=== PATIENT | female | born 1960 | race American Indian/Alaskan Native ===

== ENCOUNTER 2022-02-10 16:06 | Inpatient (IN) | payer MEDICARE ==
--- NOTE | 2022-02-11 08:50 | History and Physical Report ---
GP History & Physical - History of Present Illness Date of admission: 02/11/22 Date of Examination: 02/11/22 Reason for Admission: Danger to self, Danger to others, Failure of Outpatient Treatment History of Present Illness: The patient is a 61 year old female with history of schizophrenia who was admitted for worsening hallucinations and paranoia. In my encounter with the patient, she is calm, and alert. The patient was seen resting in her room, she is selectively mute and not engaging. PAST PSYCHIATRIC HISTORY PAST MEDICAL HISTORY: unknown Family Psychiatric History: unknown SOCIAL HISTORY REVIEW OF SYSTEMS MENTAL STATUS EXAMINATION Assessment and Plan (1) Schizophrenia Treatment Plan Patient admitted for inpatient psychiatric evaluation, medication adjustment and close monitoring The patient's behavior, mood, sleep and appetite will be closely monitored. Patient enrolled in individual and group therapeutic sessions and encouraged to attend. Patient provided with a safe and structured environment. Patient's physical health needs will be addressed by the Hospitalist. Hospitalist Consulted Labs including CBC, CMP, Lipid profile and Hemoglobin A1C levels ordered for baseline reference Social Assessment will be completed and the Geometry Professor will work with patient and family to ensure a suitable and safe disposition Medication adjustment will be made as clinically indicated Continue home meds Usual Wellness Latter Day/Preservation: - Start Trazodone 50 mg po QHS & 50 mg po QHS PRN between 10 PM & 2 AM for insomnia - Start Melatonin 5 mg po QHS to promote circadian rhythm The patient agreed on the treatment plan, understood the risk, benefit, alternative treatment, potential consequence of no treatment, and gave informed consent. Estimated days: 7 Post hospital care: primary care provider, psychiatric provider Case staffed with Dr. Jarvis Medications and Allergies Patient Problems: Current Active Problems Medications and Allergies Medications and Allergies Allergies Allergy/AdvReac Type Severity Reaction Status Date / Time Penicillins Allergy Unknown Verified 02/11/22 03:57 Home Medications Medication Instructions Recorded Confirmed Last Taken Type ARIPiprazole [Aripiprazole] 15 mg PO DAILY 02/11/22 02/11/22 Unknown History Benztropine [Cogentin] 1 mg PO BID 02/11/22 02/11/22 Unknown History Omeprazole 20 mg PO DAILY 02/11/22 02/11/22 Unknown History Sertraline [Zoloft] 25 mg PO QDAY 02/11/22 02/11/22 Unknown History atenoloL [Tenormin] 25 mg PO DAILY 02/11/22 02/11/22 Unknown History clonazePAM [Klonopin] 1 mg PO BID 02/11/22 02/11/22 Unknown History donepeziL [Aricept] 5 mg PO HS 02/11/22 02/11/22 Unknown History traZODone [Desyrel] 50 mg PO QHS 02/11/22 02/11/22 Unknown History Results - Results Labs/Vitals: Last Vital Signs Temp 98.7 F 02/11/22 03:58 Pulse 69 02/11/22 03:58 Resp 16 02/11/22 03:58 BP 131/85 02/11/22 03:58 Pulse Ox 95 02/11/22 03:58 Physical Examination - Constitutional Vitals: Vital Signs Temp Pulse Resp BP Pulse Ox 98.7 F 69 16 131/85 95 02/11/22 03:58 02/11/22 03:58 02/11/22 03:58 02/11/22 03:58 02/11/22 03:58 Temperature -Last 24 Hours Temperature 98.7 F Mental Status Exam - Vital signs Last Vital Signs Temp 98.7 F 02/11/22 03:58 Pulse 69 02/11/22 03:58 Resp 16 02/11/22 03:58 BP 131/85 02/11/22 03:58 Pulse Ox 95 02/11/22 03:58 Physician Certification - Certification Statement Physician Certification Statement: This is an acknowledgement statement that KAYLI CUETO is a 61 year old F who requires inpatient psychiatric admission for treatment which could reasonably be expected to improve the patient's condition for Estimated period of time patient will need to remain in the hospital: [ ] Plan for post-hospital care: [ ]
[2022-02-11] MEDS ORDERED: OMEPRAZOLE 20 MG PO SCH (10:00)
[2022-02-11] MEDS ORDERED: NON-FORMULARY EACH (Clonazepam [Klonopin] 1 MG Tablet) PO SCH (10:00)
[2022-02-11] MEDS: clonazePAM 0.5 MG TAB PO SCH ×2 (10:25→21:22)
[2022-02-11] MEDS: ARIPiprazole 15 MG TAB PO SCH (10:25)
[2022-02-11] MEDS: BENZTROPINE 1 MG TAB PO SCH ×2 (10:25→21:22)
[2022-02-11] MEDS: SERTRALINE 25 MG TAB PO SCH (10:25)
[2022-02-11] MEDS: PANTOPRAZOLE 20 MG TAB PO SCH (10:25)
[2022-02-11] MEDS: atenoloL 25 MG TAB PO SCH (13:02)
--- NOTE | 2022-02-11 14:08 | Consultation ---
History of Present Illness - Reason for Consult Consult date: 02/11/22 Medical management - History of Present Illness The patient is a 61-year-old female past medical history of schizophrenia and multiple inpatient psychiatric admissions who is being admitted due to concerns for her being a danger to herself and others. Medicine was consulted for medical management of nonpsychiatric diagnoses. Past History Past Medical History: GERD, hypertension, other (schizophrenia) Past Surgical History: No surgical history Social history: no significant social history Family history: hypertension Medications and Allergies Allergies Allergy/AdvReac Type Severity Reaction Status Date / Time Penicillins Allergy Unknown Verified 02/11/22 03:57 Home Medications Medication Instructions Recorded Confirmed Last Taken Type ARIPiprazole [Aripiprazole] 15 mg PO DAILY 02/11/22 02/11/22 Unknown History Benztropine [Cogentin] 1 mg PO BID 02/11/22 02/11/22 Unknown History Omeprazole 20 mg PO DAILY 02/11/22 02/11/22 Unknown History Sertraline [Zoloft] 25 mg PO QDAY 02/11/22 02/11/22 Unknown History atenoloL [Tenormin] 25 mg PO DAILY 02/11/22 02/11/22 Unknown History clonazePAM [Klonopin] 1 mg PO BID 02/11/22 02/11/22 Unknown History donepeziL [Aricept] 5 mg PO HS 02/11/22 02/11/22 Unknown History traZODone [Desyrel] 50 mg PO QHS 02/11/22 02/11/22 Unknown History Active Meds: Active Medications Aripiprazole (Aripiprazole 15 Mg Tab) 15 mg PO DAILY [facility] Last Admin: 02/11/22 10:25 Dose: 15 mg Atenolol (Atenolol 25 Mg Tab) 25 mg PO DAILY [facility] Last Admin: 02/11/22 13:02 Dose: 25 mg Benztropine Mesylate (Benztropine 1 Mg Tab) 1 mg PO BID [facility] Last Admin: 02/11/22 10:25 Dose: 1 mg Clonazepam (Clonazepam 0.5 Mg Tab) 1 mg PO BID [facility] Last Admin: 02/11/22 10:25 Dose: 1 mg Donepezil HCl (Donepezil 5 Mg Tab) 5 mg PO [facility] Pantoprazole Sodium (Pantoprazole 20 Mg Tab) 20 mg PO QDAC [facility] Last Admin: 02/11/22 10:25 Dose: 20 mg Sertraline HCl (Sertraline 25 Mg Tab) 25 mg PO QDAY [facility] Last Admin: 02/11/22 10:25 Dose: 25 mg Trazodone HCl (Trazodone 50 Mg Tab) 50 mg PO QHS [facility] Review of Systems ROS unobtainable: due to mental status Exam - Constitutional Vitals: Temp Pulse Resp BP Pulse Ox 98.7 F 75 16 115/73 95 02/11/22 03:58 02/11/22 13:02 02/11/22 03:58 02/11/22 13:02 02/11/22 03:58 General appearance: Present: well-nourished - EENT Eyes: Present: PERRL, EOM intact ENT: hearing intact, clear oral mucosa - Neck Neck: Present: supple, normal ROM - Respiratory Respiratory effort: normal Respiratory: bilateral: CTA - Cardiovascular Rhythm: regular Heart Sounds: Present: S1 & S2 - Extremities Extremities: no ischemia, pulses intact, pulses symmetrical, No edema, normal temperature, normal color Peripheral Pulses: within normal limits - Abdominal General gastrointestinal: Present: soft, non-tender, non-distended, normal bowel sounds Female genitourinary: Present: deferred - Rectal Rectal Exam: deferred - Integumentary Integumentary: Present: clear, warm - Psychiatric Psychiatric: agitated, depressed - Neurologic Neurologic: CNII-XII intact, moves all extremities - Allied Health Allied health notes reviewed: nursing Assessment and Plan The patient is a 61-year-old female past medical history of schizophrenia and multiple inpatient psychiatric admissions who is being admitted due to concerns for her being a danger to herself and others. Medicine was consulted for medical management of nonpsychiatric diagnoses. #Schizophrenia Management per primary #Insomnia Management per primary #GERD Continue home omeprazole 20 mg daily #Hypertension - home medications: Atenolol 25 mg daily - current medications: Atenolol 25 mg daily - SBP goal <160 and DBP goal <90 while inpatient - continue to monitor #Healthcare maintenance Pending the following labs: CMP, CBC, lipid profile, hemoglobin A1c, and TSH #Advanced care planning -Disease education conducted, care plan discussed, diagnoses discussed, prognosis discussed, and patient acknowledges understanding with care plan -Time: +30 min Thank you for this interesting consult. We will continue to follow.
[2022-02-11 15:35] LABS: Basophils # (Auto) 0.1 K/mm3 (0.0-0.1); Basophils % (Auto) 0.7 % (0.0-1.8); Eosinophils # (Auto) 0.1 K/mm3 (0.0-0.4); Eosinophils % (Auto) 0.6 % (0.0-4.3); Hematocrit 40.6 % (30.3-42.9); Hemoglobin 13.1 gm/dl (10.1-14.3); Mean Corpuscular HGB Conc 32 % (30-34); Mean Corpuscular Volume 95 fl (79-97); Monocytes # (Auto) 0.9 K/mm3 (0.0-0.8); Monocytes % (Auto) 9.5 % (0.0-7.3); Platelet Count 239 K/mm3 (140-440); Red Blood Count 4.27 M/mm3 (3.65-5.03)
[2022-02-11 15:55] LABS: Alanine Aminotransferase 21 units/L (7-56); Albumin 4.3 g/dL (3.9-5); BUN/Creatinine Ratio 16; Blood Urea Nitrogen 13 mg/dL (7-17); Calcium 9.6 mg/dL (8.4-10.2); Hemolysis Index 1; LDL Cholesterol,Direct 76 mg/dL (50-130)
[2022-02-11 16:22] LABS: Chol/HDL Ratio 2.01 %; HDL Cholesterol 82 mg/dL (40-59)
[2022-02-11] MEDS: traZODone 50 MG TAB PO SCH (21:22)
[2022-02-11] MEDS: DONEPEZIL 5 MG TAB PO SCH (21:22)
[2022-02-12] MEDS: ARIPiprazole 15 MG TAB PO SCH (09:45)
[2022-02-12] MEDS: SERTRALINE 25 MG TAB PO SCH (09:45)
--- NOTE | 2022-02-12 09:45 | Progress Note ---
Subjective Date of service: 02/12/22 Subjective Comment: 02/12/22: The patient was seen this morning. The patient presents with depressive mood. She states sleep and appetite as ok. She reports hearing voices " voices telling me what to do, telling me to turn the lights off and to take a shower." The patient denies any current suicidal/homicidal ideation. REVIEW OF SYSTEMS Constitutional: Negative for weight loss ENT: Negative for stridor Respiratory: Negative for cough or hemoptysis All other systems reviewed and are negative MENTAL STATUS EXAMINATION General Appearance and Behavior: Age appropriate, good hygiene, wearing appropriate clothes, good eye contact, calm, cooperative Cooperation: Participating/engaged, but Guarded Psychomotor Behavior: Psychomotor normal Mood: Depressed Affect and affective range: congruent with stated mood Thought Process: Goal directed Thought Content:Hallucinations Speech: normal tone and pace Suicidal Ideation: Denies Homicidal Ideation: Denies Hallucinations: Auditory/visual Delusions: None Impulse Control: Limited Insight and Judgment: limited insight and judgment Memory: Poor Attention: Divided Orientation: Alert, oriented Assessment and Plan: (1) Schizophrenia Treatment Plan Patient admitted for inpatient psychiatric evaluation, medication adjustment and close monitoring The patient's behavior, mood, sleep and appetite will be closely monitored. Patient enrolled in individual and group therapeutic sessions and encouraged to attend. Patient provided with a safe and structured environment. Patient's physical health needs will be addressed by the Hospitalist. Donell vail Consulted Labs including CBC, CMP, Lipid profile and Hemoglobin A1C levels ordered for baseline reference Social Assessment will be completed and the School Bus Driver will work with patient and family to ensure a suitable and safe disposition Medication adjustment will be made as clinically indicated Continue home meds Usual Wellness Mandaen/Preservation: - Start Trazodone 50 mg po QHS & 50 mg po QHS PRN between 10 PM & 2 AM for insomnia - Start Melatonin 5 mg po QHS to promote circadian rhythm The patient agreed on the treatment plan, understood the risk, benefit, alternative treatment, potential consequence of no treatment, and gave informed consent. Estimated days: 6 Post hospital care: primary care provider, psychiatric provider Case staffed with Dr. Jarvis Medications and Allergies Patient Problems: Current Active Problems Medications and Allergies Allergies Allergy/AdvReac Type Severity Reaction Status Date / Time Penicillins Allergy Unknown Verified 02/11/22 03:57 Home Medications Medication Instructions Recorded Confirmed Last Taken Type ARIPiprazole [Aripiprazole] 15 mg PO DAILY 02/11/22 02/11/22 Unknown History Benztropine [Cogentin] 1 mg PO BID 02/11/22 02/11/22 Unknown History Omeprazole 20 mg PO DAILY 02/11/22 02/11/22 Unknown History Sertraline [Zoloft] 25 mg PO QDAY 02/11/22 02/11/22 Unknown History atenoloL [Tenormin] 25 mg PO DAILY 02/11/22 02/11/22 Unknown History clonazePAM [Klonopin] 1 mg PO BID 02/11/22 02/11/22 Unknown History donepeziL [Aricept] 5 mg PO HS 02/11/22 02/11/22 Unknown History traZODone [Desyrel] 50 mg PO QHS 02/11/22 02/11/22 Unknown History Active Meds: Active Medications Aripiprazole (Aripiprazole 15 Mg Tab) 15 mg PO DAILY [facility] Last Admin: 02/11/22 10:25 Dose: 15 mg Atenolol (Atenolol 25 Mg Tab) 25 mg PO DAILY [facility] Last Admin: 02/11/22 13:02 Dose: 25 mg Benztropine Mesylate (Benztropine 1 Mg Tab) 1 mg PO BID [facility] Last Admin: 02/11/22 21:22 Dose: 1 mg Clonazepam (Clonazepam 0.5 Mg Tab) 1 mg PO BID [facility] Last Admin: 02/11/22 21:22 Dose: 1 mg Donepezil HCl (Donepezil 5 Mg Tab) 5 mg PO [facility] Last Admin: 02/11/22 21:22 Dose: 5 mg Pantoprazole Sodium (Pantoprazole 20 Mg Tab) 20 mg PO QDAC [facility] Last Admin: 02/11/22 10:25 Dose: 20 mg Sertraline HCl (Sertraline 25 Mg Tab) 25 mg PO QDAY [facility] Last Admin: 02/11/22 10:25 Dose: 25 mg Trazodone HCl (Trazodone 50 Mg Tab) 50 mg PO QHS [facility] Last Admin: 02/11/22 21:22 Dose: 50 mg Results - Results Labs/Vitals: Laboratory Last Values WBC 9.3 K/mm3 (4.5-11.0) 02/11/22 15:10 RBC 4.27 M/mm3 (3.65-5.03) 02/11/22 15:10 Hgb 13.1 gm/dl (10.1-14.3) 02/11/22 15:10 Hct 40.6 % (30.3-42.9) 02/11/22 15:10 MCV 95 fl (79-97) 02/11/22 15:10 MCH 31 pg (28-32) 02/11/22 15:10 MCHC 32 % (30-34) 02/11/22 15:10 RDW 14.0 % (13.2-15.2) 02/11/22 15:10 Plt Count 239 K/mm3 (140-440) 02/11/22 15:10 Lymph % (Auto) 22.0 % (13.4-35.0) 02/11/22 15:10 [place]fe % (Auto) 9.5 % (0.0-7.3) H 02/11/22 15:10 Eos % (Auto) 0.6 % (0.0-4.3) 02/11/22 15:10 Baso % (Auto) 0.7 % (0.0-1.8) 02/11/22 15:10 Lymph # (Auto) 2.0 K/mm3 (1.2-5.4) 02/11/22 15:10 [place] # (Auto) 0.9 K/mm3 (0.0-0.8) H 02/11/22 15:10 Eos # (Auto) 0.1 K/mm3 (0.0-0.4) 02/11/22 15:10 Baso # (Auto) 0.1 K/mm3 (0.0-0.1) 02/11/22 15:10 Seg Neutrophils % 67.2 % (40.0-70.0) 02/11/22 15:10 Seg Neutrophils # 6.2 K/mm3 (1.8-7.7) 02/11/22 15:10 Sodium 146 mmol/L (137-145) H 02/11/22 15:10 Potassium 3.7 mmol/L (3.6-5.0) 02/11/22 15:10 Chloride 107.9 mmol/L (98-107) H 02/11/22 15:10 Carbon Dioxide 25 mmol/L (22-30) 02/11/22 15:10 Anion Gap 17 mmol/L 02/11/22 15:10 BUN 13 mg/dL (7-17) 02/11/22 15:10 Creatinine 0.8 mg/dL (0.6-1.2) 02/11/22 15:10 Estimated GFR > 60 ml/min 02/11/22 15:10 BUN/Creatinine Ratio 16 % 02/11/22 15:10 Glucose 117 mg/dL (65-100) H 02/11/22 15:10 Hemoglobin A1c 5.8 % (4-6) 02/11/22 15:10 Calcium 9.6 mg/dL (8.4-10.2) 02/11/22 15:10 Total Bilirubin 0.50 mg/dL (0.1-1.2) 02/11/22 15:10 AST 24 units/L (5-40) 02/11/22 15:10 ALT 21 units/L (7-56) 02/11/22 15:10 Alkaline Phosphatase 100 units/L (35-129) 02/11/22 15:10 Total Protein 7.4 g/dL (6.3-8.2) 02/11/22 15:10 Albumin 4.3 g/dL (3.9-5) 02/11/22 15:10 Albumin/Globulin Ratio 1.4 % 02/11/22 15:10 Triglycerides 43 mg/dL (2-149) 02/11/22 15:10 Cholesterol 165 mg/dL (50-199) 02/11/22 15:10 LDL Cholesterol Direct 76 mg/dL (50-130) 02/11/22 15:10 HDL Cholesterol 82 mg/dL (40-59) H 02/11/22 15:10 Cholesterol/HDL Ratio 2.01 % 02/11/22 15:10 TSH 0.608 mlU/mL (0.270-4.200) 02/11/22 15:10 Last Vital Signs Temp 98.5 F 02/11/22 19:40 Pulse 60 02/11/22 19:40 Resp 17 02/11/22 19:40 BP 119/69 02/11/22 19:40 Pulse Ox 95 02/11/22 19:40
[2022-02-12] MEDS: clonazePAM 0.5 MG TAB PO SCH ×2 (09:46→21:54)
[2022-02-12] MEDS: BENZTROPINE 1 MG TAB PO SCH ×2 (09:46→21:53)
[2022-02-12] MEDS: PANTOPRAZOLE 20 MG TAB PO SCH (09:46)
[2022-02-12] MEDS: atenoloL 25 MG TAB PO SCH (09:47)
[2022-02-12] MEDS: traZODone 50 MG TAB PO SCH (22:01)
[2022-02-12] MEDS: DONEPEZIL 5 MG TAB PO SCH (22:02)
--- NOTE | 2022-02-13 09:06 | Progress Note ---
Subjective Date of service: 02/13/22 Subjective Comment: 02/13/22: The patient was seen this morning. She states she is doing well. She continues to endorse depression rating as 4/10. She presents with flat affect. The patient denies any current suicidal/homicidal ideation. She states hallucinations is a " little better." 02/12/22: The patient was seen this morning. The patient presents with depressive mood. She states sleep and appetite as ok. She reports hearing voices " voices telling me what to do, telling me to turn the lights off and to take a shower." The patient denies any current suicidal/homicidal ideation. REVIEW OF SYSTEMS Constitutional: Negative for weight loss ENT: Negative for stridor Respiratory: Negative for cough or hemoptysis All other systems reviewed and are negative MENTAL STATUS EXAMINATION General Appearance and Behavior: Age appropriate, good hygiene, wearing appropriate clothes, good eye contact, calm, cooperative Cooperation: Participating/engaged, but Guarded Psychomotor Behavior: Psychomotor normal Mood: Depressed Affect and affective range: congruent with stated mood Thought Process: Goal directed Thought Content:Hallucinations Speech: normal tone and pace Suicidal Ideation: Denies Homicidal Ideation: Denies Hallucinations: Auditory/visual Delusions: None Impulse Control: Limited Insight and Judgment: limited insight and judgment Memory: Poor Attention: Divided Orientation: Alert, oriented Assessment and Plan: (1) Schizophrenia Treatment Plan Patient admitted for inpatient psychiatric evaluation, medication adjustment and close monitoring The patient's behavior, mood, sleep and appetite will be closely monitored. Patient enrolled in individual and group therapeutic sessions and encouraged to attend. Patient provided with a safe and structured environment. Patient's physical health needs will be addressed by the Hospitalist. Hospitalist Consulted Labs including CBC, CMP, Lipid profile and Hemoglobin A1C levels ordered for baseline reference Social Assessment will be completed and the Medication Aid will work with patient and family to ensure a suitable and safe disposition Medication adjustment will be made as clinically indicated Continue home meds Usual Wellness [place]ats[place]/Preservation: - Start Trazodone 50 mg po QHS & 50 mg po QHS PRN between 10 PM & 2 AM for insomnia - Start Melatonin 5 mg po QHS to promote circadian rhythm The patient agreed on the treatment plan, understood the risk, benefit, alternative treatment, potential consequence of no treatment, and gave informed consent. Estimated days: 5 Post hospital care: primary care provider, psychiatric provider Case staffed with Dr. Matheus Medications and Allergies Patient Problems: Current Active Problems Medications and Allergies Allergies Allergy/AdvReac Type Severity Reaction Status Date / Time Penicillins Allergy Unknown Verified 02/11/22 03:57 Home Medications Medication Instructions Recorded Confirmed Last Taken Type ARIPiprazole [Aripiprazole] 15 mg PO DAILY 02/11/22 02/11/22 Unknown History Benztropine [Cogentin] 1 mg PO BID 02/11/22 02/11/22 Unknown History Omeprazole 20 mg PO DAILY 02/11/22 02/11/22 Unknown History Sertraline [Zoloft] 25 mg PO QDAY 02/11/22 02/11/22 Unknown History atenoloL [Tenormin] 25 mg PO DAILY 02/11/22 02/11/22 Unknown History clonazePAM [Klonopin] 1 mg PO BID 02/11/22 02/11/22 Unknown History donepeziL [Aricept] 5 mg PO HS 02/11/22 02/11/22 Unknown History traZODone [Desyrel] 50 mg PO QHS 02/11/22 02/11/22 Unknown History Active Meds: Active Medications Aripiprazole (Aripiprazole 15 Mg Tab) 15 mg PO DAILY [facility] Last Admin: 02/12/22 09:45 Dose: 15 mg Atenolol (Atenolol 25 Mg Tab) 25 mg PO DAILY [facility] Last Admin: 02/12/22 09:47 Dose: Not Given Benztropine Mesylate (Benztropine 1 Mg Tab) 1 mg PO BID [facility] Last Admin: 02/12/22 21:53 Dose: 1 mg Clonazepam (Clonazepam 0.5 Mg Tab) 1 mg PO BID [facility] Last Admin: 02/12/22 21:54 Dose: 1 mg Donepezil HCl (Donepezil 5 Mg Tab) 5 mg PO [facility] Last Admin: 02/12/22 22:02 Dose: 5 mg Olanzapine (Olanzapine 5 Mg Tab) 5 mg PO BID [facility] Last Admin: 02/12/22 21:53 Dose: 5 mg Pantoprazole Sodium (Pantoprazole 20 Mg Tab) 20 mg PO QDAC [facility] Last Admin: 02/12/22 09:46 Dose: 20 mg Sertraline HCl (Sertraline 25 Mg Tab) 25 mg PO QDAY [facility] Last Admin: 03/24/22 09:45 Dose: 25 mg Trazodone HCl (Trazodone 50 Mg Tab) 50 mg PO QHS [facility] Last Admin: 02/12/22 22:01 Dose: 50 mg Results - Results Labs/Vitals: Laboratory Last Values WBC 9.3 K/mm3 (4.5-11.0) 02/11/22 15:10 RBC 4.27 M/mm3 (3.65-5.03) 02/11/22 15:10 Hgb 13.1 gm/dl (10.1-14.3) 02/11/22 15:10 Hct 40.6 % (30.3-42.9) 02/11/22 15:10 MCV 95 fl (79-97) 02/11/22 15:10 MCH 31 pg (28-32) 02/11/22 15:10 MCHC 32 % (30-34) 02/11/22 15:10 RDW 14.0 % (13.2-15.2) 02/11/22 15:10 Plt Count 239 K/mm3 (140-440) 02/11/22 15:10 Lymph % (Auto) 22.0 % (13.4-35.0) 02/11/22 15:10 Grand % (Auto) 9.5 % (0.0-7.3) H 02/11/22 15:10 Eos % (Auto) 0.6 % (0.0-4.3) 02/11/22 15:10 Baso % (Auto) 0.7 % (0.0-1.8) 02/11/22 15:10 Lymph # (Auto) 2.0 K/mm3 (1.2-5.4) 02/11/22 15:10 Grand # (Auto) 0.9 K/mm3 (0.0-0.8) H 02/11/22 15:10 Eos # (Auto) 0.1 K/mm3 (0.0-0.4) 02/11/22 15:10 Baso # (Auto) 0.1 K/mm3 (0.0-0.1) 02/11/22 15:10 Seg Neutrophils % 67.2 % (40.0-70.0) 02/11/22 15:10 Seg Neutrophils # 6.2 K/mm3 (1.8-7.7) 02/11/22 15:10 Sodium 146 mmol/L (137-145) H 02/11/22 15:10 Potassium 3.7 mmol/L (3.6-5.0) 02/11/22 15:10 Chloride 107.9 mmol/L (98-107) H 02/11/22 15:10 Carbon Dioxide 25 mmol/L (22-30) 02/11/22 15:10 Anion Gap 17 mmol/L 02/11/22 15:10 BUN 13 mg/dL (7-17) 02/11/22 15:10 Creatinine 0.8 mg/dL (0.6-1.2) 02/11/22 15:10 Estimated GFR > 60 ml/min 02/11/22 15:10 BUN/Creatinine Ratio 16 % 02/11/22 15:10 Glucose 117 mg/dL (65-100) H 02/11/22 15:10 Hemoglobin A1c 5.8 % (4-6) 02/11/22 15:10 Calcium 9.6 mg/dL (8.4-10.2) 02/11/22 15:10 Total Bilirubin 0.50 mg/dL (0.1-1.2) 02/11/22 15:10 AST 24 units/L (5-40) 02/11/22 15:10 ALT 21 units/L (7-56) 02/11/22 15:10 Alkaline Phosphatase 100 units/L (35-129) 02/11/22 15:10 Total Protein 7.4 g/dL (6.3-8.2) 02/11/22 15:10 Albumin 4.3 g/dL (3.9-5) 02/11/22 15:10 Albumin/Globulin Ratio 1.4 % 02/11/22 15:10 Triglycerides 43 mg/dL (2-149) 02/11/22 15:10 Cholesterol 165 mg/dL (50-199) 02/11/22 15:10 LDL Cholesterol Direct 76 mg/dL (50-130) 02/11/22 15:10 HDL Cholesterol 82 mg/dL (40-59) H 02/11/22 15:10 Cholesterol/HDL Ratio 2.01 % 02/11/22 15:10 TSH 0.608 mlU/mL (0.270-4.200) 02/11/22 15:10 Last Vital Signs Temp 98.5 F 02/12/22 19:31 Pulse 63 02/12/22 19:31 Resp 16 02/12/22 19:31 BP 114/61 02/12/22 19:31 Pulse Ox 96 02/12/22 19:31
[2022-02-13] MEDS: atenoloL 25 MG TAB PO SCH ×2 (10:43→10:51)
[2022-02-13] MEDS: PANTOPRAZOLE 20 MG TAB PO SCH (10:44)
[2022-02-13] MEDS: clonazePAM 0.5 MG TAB PO SCH ×2 (10:44→21:58)
[2022-02-13] MEDS: ARIPiprazole 15 MG TAB PO SCH (10:47)
[2022-02-13] MEDS: SERTRALINE 25 MG TAB PO SCH (10:47)
[2022-02-13] MEDS: BENZTROPINE 1 MG TAB PO SCH ×2 (10:48→21:58)
[2022-02-13] MEDS: traZODone 50 MG TAB PO SCH (21:58)
[2022-02-13] MEDS: DONEPEZIL 5 MG TAB PO SCH (21:58)
[2022-02-14] MEDS: PANTOPRAZOLE 20 MG TAB PO SCH (08:22)
--- NOTE | 2022-02-14 08:56 | Progress Note ---
Subjective Date of service: 02/14/22 Subjective Comment: 02/14/22: The patient was seen at breakfast. She states she is doing well. The patient denies any current suicidal/homicidal ideation. She states hallucinations " voices saying good and bad things, telling me what to do and what not to do." 02/13/22: The patient was seen this morning. She states she is doing well. She continues to endorse depression rating as 4/10. She presents with flat affect. The patient denies any current suicidal/homicidal ideation. She states hallucinations is a " little better." 02/12/22: The patient was seen this morning. The patient presents with depressive mood. She states sleep and appetite as ok. She reports hearing voices " voices telling me what to do, telling me to turn the lights off and to take a shower." The patient denies any current suicidal/homicidal ideation. REVIEW OF SYSTEMS Constitutional: Negative for weight loss ENT: Negative for stridor Respiratory: Negative for cough or hemoptysis All other systems reviewed and are negative MENTAL STATUS EXAMINATION General Appearance and Behavior: Age appropriate, good hygiene, wearing appropriate clothes, good eye contact, calm, cooperative Cooperation: Participating/engaged, but Guarded Psychomotor Behavior: Psychomotor normal Mood: Depressed Affect and affective range: congruent with stated mood Thought Process: Goal directed Thought Content:Hallucinations Speech: normal tone and pace Suicidal Ideation: Denies Homicidal Ideation: Denies Hallucinations: Auditory/visual Delusions: None Impulse Control: Limited Insight and Judgment: limited insight and judgment Memory: Poor Attention: Divided Orientation: Alert, oriented Assessment and Plan: (1) Schizophrenia Treatment Plan Patient admitted for inpatient psychiatric evaluation, medication adjustment and close monitoring The patient's behavior, mood, sleep and appetite will be closely monitored. Patient enrolled in individual and group therapeutic sessions and encouraged to attend. Patient provided with a safe and structured environment. Patient's physical health needs will be addressed by the Hospitalist. Hospitalist Consulted Labs including CBC, CMP, Lipid profile and Hemoglobin A1C levels ordered for baseline reference Social Assessment will be completed and the Boiler Plant Operator will work with patient and family to ensure a suitable and safe disposition Medication adjustment will be made as clinically indicated Continue home meds Usual Wellness Alevism/Preservation: - Start Trazodone 50 mg po QHS & 50 mg po QHS PRN between 10 PM & 2 AM for insomnia - Start Melatonin 5 mg po QHS to promote circadian rhythm The patient agreed on the treatment plan, understood the risk, benefit, alternative treatment, potential consequence of no treatment, and gave informed consent. Estimated days: 4 Post hospital care: primary care provider, psychiatric provider Case staffed with Dr. Jarvis Medications and Allergies Patient Problems: Current Active Problems Medications and Allergies Allergies Allergy/AdvReac Type Severity Reaction Status Date / Time Penicillins Allergy Unknown Verified 02/11/22 03:57 Home Medications Medication Instructions Recorded Confirmed Last Taken Type ARIPiprazole [Aripiprazole] 15 mg PO DAILY 02/11/22 02/11/22 Unknown History Benztropine [Cogentin] 1 mg PO BID 02/11/22 02/11/22 Unknown History Omeprazole 20 mg PO DAILY 02/11/22 02/11/22 Unknown History Sertraline [Zoloft] 25 mg PO QDAY 02/11/22 02/11/22 Unknown History atenoloL [Tenormin] 25 mg PO DAILY 02/11/22 02/11/22 Unknown History clonazePAM [Klonopin] 1 mg PO BID 02/11/22 02/11/22 Unknown History donepeziL [Aricept] 5 mg PO HS 02/11/22 02/11/22 Unknown History traZODone [Desyrel] 50 mg PO QHS 02/11/22 02/11/22 Unknown History Active Meds: Active Medications Aripiprazole (Aripiprazole 15 Mg Tab) 15 mg PO DAILY [facility] Last Admin: 02/13/22 10:47 Dose: 15 mg Atenolol (Atenolol 25 Mg Tab) 25 mg PO DAILY [facility] Last Admin: 02/13/22 10:51 Dose: Not Given Benztropine Mesylate (Benztropine 1 Mg Tab) 1 mg PO BID [facility] Last Admin: 02/13/22 21:58 Dose: 1 mg Clonazepam (Clonazepam 0.5 Mg Tab) 1 mg PO BID [facility] Last Admin: 02/13/22 21:58 Dose: 1 mg Donepezil HCl (Donepezil 5 Mg Tab) 5 mg PO HS [facility] Last Admin: 02/13/22 21:58 Dose: 5 mg Olanzapine (Olanzapine 5 Mg Tab) 5 mg PO BID [facility] Last Admin: 02/13/22 21:59 Dose: 5 mg Pantoprazole Sodium (Pantoprazole 20 Mg Tab) 20 mg PO QDAC [facility] Last Admin: 02/14/22 08:22 Dose: 20 mg Sertraline HCl (Sertraline 25 Mg Tab) 25 mg PO QDAY [facility] Last Admin: 02/13/22 10:47 Dose: 25 mg Trazodone HCl (Trazodone 50 Mg Tab) 50 mg PO QHS [facility] Last Admin: 02/13/22 21:58 Dose: 50 mg Results - Results Labs/Vitals: Laboratory Last Values WBC 9.3 K/mm3 (4.5-11.0) 02/11/22 15:10 RBC 4.27 M/mm3 (3.65-5.03) 02/11/22 15:10 Hgb 13.1 gm/dl (10.1-14.3) 02/11/22 15:10 Hct 40.6 % (30.3-42.9) 02/11/22 15:10 MCV 95 fl (79-97) 02/11/22 15:10 MCH 31 pg (28-32) 02/11/22 15:10 MCHC 32 % (30-34) 02/11/22 15:10 RDW 14.0 % (13.2-15.2) 02/11/22 15:10 Plt Count 239 K/mm3 (140-440) 02/11/22 15:10 Lymph % (Auto) 22.0 % (13.4-35.0) 02/11/22 15:10 [place] % (Auto) 9.5 % (0.0-7.3) H 02/11/22 15:10 Eos % (Auto) 0.6 % (0.0-4.3) 02/11/22 15:10 Baso % (Auto) 0.7 % (0.0-1.8) 02/11/22 15:10 Lymph # (Auto) 2.0 K/mm3 (1.2-5.4) 02/11/22 15:10 [place] # (Auto) 0.9 K/mm3 (0.0-0.8) H 02/11/22 15:10 Eos # (Auto) 0.1 K/mm3 (0.0-0.4) 02/11/22 15:10 Baso # (Auto) 0.1 K/mm3 (0.0-0.1) 02/11/22 15:10 Seg Neutrophils % 67.2 % (40.0-70.0) 02/11/22 15:10 Seg Neutrophils # 6.2 K/mm3 (1.8-7.7) 02/11/22 15:10 Sodium 146 mmol/L (137-145) H 02/11/22 15:10 Potassium 3.7 mmol/L (3.6-5.0) 02/11/22 15:10 Chloride 107.9 mmol/L (98-107) H 02/11/22 15:10 Carbon Dioxide 25 mmol/L (22-30) 02/11/22 15:10 Anion Gap 17 mmol/L 02/11/22 15:10 BUN 13 mg/dL (7-17) 02/11/22 15:10 Creatinine 0.8 mg/dL (0.6-1.2) 02/11/22 15:10 Estimated GFR > 60 ml/min 02/11/22 15:10 BUN/Creatinine Ratio 16 % 02/11/22 15:10 Glucose 117 mg/dL (65-100) H 02/11/22 15:10 POC Glucose 105 mg/dL (70-105) 02/13/22 20:05 Hemoglobin A1c 5.8 % (4-6) 02/11/22 15:10 Calcium 9.6 mg/dL (8.4-10.2) 02/11/22 15:10 Total Bilirubin 0.50 mg/dL (0.1-1.2) 02/11/22 15:10 AST 24 units/L (5-40) 02/11/22 15:10 ALT 21 units/L (7-56) 02/11/22 15:10 Alkaline Phosphatase 100 units/L (35-129) 02/11/22 15:10 Total Protein 7.4 g/dL (6.3-8.2) 02/11/22 15:10 Albumin 4.3 g/dL (3.9-5) 02/11/22 15:10 Albumin/Globulin Ratio 1.4 % 02/11/22 15:10 Triglycerides 43 mg/dL (2-149) 02/11/22 15:10 Cholesterol 165 mg/dL (50-199) 02/11/22 15:10 LDL Cholesterol Direct 76 mg/dL (50-130) 02/11/22 15:10 HDL Cholesterol 82 mg/dL (40-59) H 02/11/22 15:10 Cholesterol/HDL Ratio 2.01 % 02/11/22 15:10 TSH 0.608 mlU/mL (0.270-4.200) 02/11/22 15:10 Last Vital Signs Temp 98.3 F 02/13/22 20:09 Pulse 62 02/13/22 20:09 Resp 18 02/13/22 20:09 BP 113/70 02/13/22 20:09 Pulse Ox 100 02/13/22 20:09
[2022-02-14] MEDS: BENZTROPINE 1 MG TAB PO SCH ×2 (09:12→21:15)
[2022-02-14] MEDS: ARIPiprazole 15 MG TAB PO SCH (09:12)
[2022-02-14] MEDS: clonazePAM 0.5 MG TAB PO SCH (09:13)
[2022-02-14] MEDS: SERTRALINE 25 MG TAB PO SCH (09:25)
[2022-02-14] MEDS: atenoloL 25 MG TAB PO SCH (09:26)
[2022-02-14] MEDS ORDERED: clonazePAM 0.5 MG TAB PO PRN (09:29)
--- NOTE | 2022-02-14 09:35 | Event Note ---
Date: 02/14/22 Spoke with patient's mother Margie Daugherty @ [phone] and updated her on the current treatment plan. She wanted to know about discharge and was informed that case management will reach out to her after treatment plan on Wednesday.
[2022-02-14] MEDS: SERTRALINE 50 MG TAB PO SCH (11:34)
[2022-02-14] MEDS: DIVALPROEX DR 125 MG TAB PO SCH ×2 (11:34→21:15)
[2022-02-14] MEDS: ARIPiprazole 10 MG TAB PO SCH (11:34)
[2022-02-14] MEDS: DONEPEZIL 5 MG TAB PO SCH (21:15)
[2022-02-14] MEDS: traZODone 50 MG TAB PO SCH (21:15)
[2022-02-15] MEDS: PANTOPRAZOLE 20 MG TAB PO SCH (08:51)
--- NOTE | 2022-02-15 09:06 | Progress Note ---
Subjective Date of service: 02/15/22 Subjective Comment: 02/15/22: The patient was seen resting in bed. She reports being nervous " the voices are telling me what to do." She reports anxiety as 5/10. The patient denies any current suicidal/homicidal ideation. 02/14/22: The patient was seen at breakfast. She states she is doing well. The patient denies any current suicidal/homicidal ideation. She states hallucinations " voices saying good and bad things, telling me what to do and what not to do." 02/13/22: The patient was seen this morning. She states she is doing well. She continues to endorse depression rating as 4/10. She presents with flat affect. The patient denies any current suicidal/homicidal ideation. She states hallucinations is a " little better." 02/12/22: The patient was seen this morning. The patient presents with de pressive mood. She states sleep and appetite as ok. She reports hearing voices " voices telling me what to do, telling me to turn the lights off and to take a shower." The patient denies any current suicidal/homicidal ideation. REVIEW OF SYSTEMS Constitutional: Negative for weight loss ENT: Negative for stridor Respiratory: Negative for cough or hemoptysis All other systems reviewed and are negative MENTAL STATUS EXAMINATION General Appearance and Behavior: Age appropriate, good hygiene, wearing appropriate clothes, good eye contact, calm, cooperative Cooperation: Participating/engaged, but Guarded Psychomotor Behavior: Psychomotor normal Mood: Depressed Affect and affective range: congruent with stated mood Thought Process: Goal directed Thought Content:Hallucinations Speech: normal tone and pace Suicidal Ideation: Denies Homicidal Ideation: Denies Hallucinations: Auditory/visual Delusions: None Impulse Control: Limited Insight and Judgment: limited insight and judgment Memory: Poor Attention: Divided Orientation: Alert, oriented Assessment and Plan: (1) Schizophrenia Treatment Plan Patient admitted for inpatient psychiatric evaluation, medication adjustment and close monitoring The patient's behavior, mood, sleep and appetite will be closely monitored. Patient enrolled in individual and group therapeutic sessions and encouraged to attend. Patient provided with a safe and structured environment. Patient's physical health needs will be addressed by the Hospitalist. Hospitalist Consulted Labs including CBC, CMP, Lipid profile and Hemoglobin A1C levels ordered for baseline reference Social Assessment will be completed and the Touring Production Manager will work with patient and family to ensure a suitable and safe disposition Medication adjustment will be made as clinically indicated Continue home meds Usual Wellness Adventist/Preservation: - Start Trazodone 50 mg po QHS & 50 mg po QHS PRN between 10 PM & 2 AM for insomnia - Start Melatonin 5 mg po QHS to promote circadian rhythm The patient agreed on the treatment plan, understood the risk, benefit, alternative treatment, potential consequence of no treatment, and gave informed consent. Estimated days: 4 Post hospital care: primary care provider, psychiatric provider Case staffed with Dr. Jarvis Medications and Allergies Patient Problems: Current Active Problems Medications and Allergies Allergies Allergy/AdvReac Type Severity Reaction Status Date / Time Penicillins Allergy Unknown Verified 02/11/22 03:57 Home Medications Medication Instructions Recorded Confirmed Last Taken Type ARIPiprazole [Aripiprazole] 15 mg PO DAILY 02/11/22 02/11/22 Unknown History Benztropine [Cogentin] 1 mg PO BID 02/11/22 02/11/22 Unknown History Omeprazole 20 mg PO DAILY 02/11/22 02/11/22 Unknown History Sertraline [Zoloft] 25 mg PO QDAY 02/11/22 02/11/22 Unknown History atenoloL [Tenormin] 25 mg PO DAILY 02/11/22 02/11/22 Unknown History clonazePAM [Klonopin] 1 mg PO BID 02/11/22 02/11/22 Unknown History donepeziL [Aricept] 5 mg PO HS 02/11/22 02/11/22 Unknown History traZODone [Desyrel] 50 mg PO QHS 02/11/22 02/11/22 Unknown History Active Meds: Active Medications Aripiprazole (Aripiprazole 10 Mg Tab) 20 mg PO QDAY [facility] Last Admin: 02/14/22 11:34 Dose: 20 mg Atenolol (Atenolol 25 Mg Tab) 25 mg PO DAILY [facility] Last Admin: 02/14/22 09:26 Dose: Not Given Benztropine Mesylate (Benztropine 1 Mg Tab) 1 mg PO BID [facility] Last Admin: 02/14/22 21:15 Dose: 1 mg Clonazepam (Clonazepam 0.5 Mg Tab) 0.5 mg PO BID PRN PRN Reason: Anxiety Divalproex Sodium (Divalproex Dr 125 Mg Tab) 125 mg PO BID [facility] Last Admin: 02/14/22 21:15 Dose: 125 mg Donepezil HCl (Donepezil 5 Mg Tab) 5 mg PO HS [facility] Last Admin: 02/14/22 21:15 Dose: 5 mg Pantoprazole Sodium (Pantoprazole 20 Mg Tab) 20 mg PO QDAC [facility] Last Admin: 02/15/22 08:51 Dose: 20 mg Sertraline HCl (Sertraline 50 Mg Tab) 50 mg PO QDAY [facility] Last Admin: 02/14/22 11:34 Dose: 50 mg Trazodone HCl (Trazodone 50 Mg Tab) 50 mg PO QHS [facility] Last Admin: 02/14/22 21:15 Dose: 50 mg Results - Results Labs/Vitals: Laboratory Last Values WBC 9.3 K/mm3 (4.5-11.0) 02/11/22 15:10 RBC 4.27 M/mm3 (3.65-5.03) 02/11/22 15:10 Hgb 13.1 gm/dl (10.1-14.3) 02/11/22 15:10 Hct 40.6 % (30.3-42.9) 02/11/22 15:10 MCV 95 fl (79-97) 02/11/22 15:10 MCH 31 pg (28-32) 02/11/22 15:10 MCHC 32 % (30-34) 02/11/22 15:10 RDW 14.0 % (13.2-15.2) 02/11/22 15:10 Plt Count 239 K/mm3 (140-440) 02/11/22 15:10 Lymph % (Auto) 22.0 % (13.4-35.0) 02/11/22 15:10 [place] % (Auto) 9.5 % (0.0-7.3) H 02/11/22 15:10 Eos % (Auto) 0.6 % (0.0-4.3) 02/11/22 15:10 Baso % (Auto) 0.7 % (0.0-1.8) 02/11/22 15:10 Lymph # (Auto) 2.0 K/mm3 (1.2-5.4) 02/11/22 15:10 [place] # (Auto) 0.9 K/mm3 (0.0-0.8) H 02/11/22 15:10 Eos # (Auto) 0.1 K/mm3 (0.0-0.4) 02/11/22 15:10 Baso # (Auto) 0.1 K/mm3 (0.0-0.1) 02/11/22 15:10 Seg Neutrophils % 67.2 % (40.0-70.0) 02/11/22 15:10 Seg Neutrophils # 6.2 K/mm3 (1.8-7.7) 02/11/22 15:10 Sodium 146 mmol/L (137-145) H 02/11/22 15:10 Potassium 3.7 mmol/L (3.6-5.0) 02/11/22 15:10 Chloride 107.9 mmol/L (98-107) H 02/11/22 15:10 Carbon Dioxide 25 mmol/L (22-30) 02/11/22 15:10 Anion Gap 17 mmol/L 02/11/22 15:10 BUN 13 mg/dL (7-17) 02/11/22 15:10 Creatinine 0.8 mg/dL (0.6-1.2) 02/11/22 15:10 Estimated GFR > 60 ml/min 02/11/22 15:10 BUN/Creatinine Ratio 16 % 02/11/22 15:10 Glucose 117 mg/dL (65-100) H 02/11/22 15:10 POC Glucose 105 mg/dL (70-105) 02/13/22 20:05 Hemoglobin A1c 5.8 % (4-6) 02/11/22 15:10 Calcium 9.6 mg/dL (8.4-10.2) 02/11/22 15:10 Total Bilirubin 0.50 mg/dL (0.1-1.2) 02/11/22 15:10 AST 24 units/L (5-40) 02/11/22 15:10 ALT 21 units/L (7-56) 02/11/22 15:10 Alkaline Phosphatase 100 units/L (35-129) 02/11/22 15:10 Total Protein 7.4 g/dL (6.3-8.2) 02/11/22 15:10 Albumin 4.3 g/dL (3.9-5) 02/11/22 15:10 Albumin/Globulin Ratio 1.4 % 02/11/22 15:10 Triglycerides 43 mg/dL (2-149) 02/11/22 15:10 Cholesterol 165 mg/dL (50-199) 02/11/22 15:10 LDL Cholesterol Direct 76 mg/dL (50-130) 02/11/22 15:10 HDL Cholesterol 82 mg/dL (40-59) H 02/11/22 15:10 Cholesterol/HDL Ratio 2.01 % 02/11/22 15:10 TSH 0.608 mlU/mL (0.270-4.200) 02/11/22 15:10 Last Vital Signs Temp 98.4 F 02/14/22 19:47 Pulse 59 L 02/14/22 19:47 Resp 17 02/14/22 19:47 BP 113/70 02/14/22 19:47 Pulse Ox 100 02/14/22 19:47
[2022-02-15] MEDS: ARIPiprazole 10 MG TAB PO SCH (09:58)
[2022-02-15] MEDS: SERTRALINE 50 MG TAB PO SCH (09:59)
[2022-02-15] MEDS: BENZTROPINE 1 MG TAB PO SCH ×2 (09:59→21:21)
[2022-02-15] MEDS: atenoloL 25 MG TAB PO SCH (09:59)
[2022-02-15] MEDS: DIVALPROEX DR 125 MG TAB PO SCH ×2 (09:59→21:21)
[2022-02-15] MEDS: hydrOXYzine PAMOATE 25 MG CAP PO SCH ×2 (13:02→21:00)
[2022-02-15] MEDS: DONEPEZIL 5 MG TAB PO SCH (21:21)
[2022-02-15] MEDS: traZODone 50 MG TAB PO SCH (23:21)
[2022-02-16 10:02] VITALS: BP 99/61
[2022-02-16] MEDS: ARIPiprazole 10 MG TAB PO SCH (10:03)
[2022-02-16] MEDS: DIVALPROEX DR 125 MG TAB PO SCH (10:03)
[2022-02-16] MEDS: BENZTROPINE 1 MG TAB PO SCH (10:04)
[2022-02-16] MEDS: SERTRALINE 50 MG TAB PO SCH (10:04)
[2022-02-16] MEDS: hydrOXYzine PAMOATE 25 MG CAP PO SCH ×2 (10:04→14:16)
[2022-02-16] MEDS: PANTOPRAZOLE 20 MG TAB PO SCH (10:04)
--- NOTE | 2022-02-16 10:23 | Discharge Summary ---
Providers - Providers Date of Admission: 02/11/22 04:30 Date of discharge: 02/16/22 Attending physician: ANGEL YOON MD 02/11/22 03:58 Consult to Physician [CONS] Routine Comment: Consulting Provider: JALYN TRINIDAD Physician Instructions: Please manage existing problems Reason For Exam: New admission Primary care physician: KOSHER DIETARY SERVICE MANAGER Hospitalization Reason for admission: hallucinations Admitting Diagnosis: F20.9 - SCHIZOPHRENIA, UNSPECIFIED Condition: Stable Hospital course: The patient was provided inpatient psychiatric treatment with safe and supportive environment, group/individual therapy, psychiatric medication, medication adjustment, adverse effect monitor, medical evaluation, medical treatment, social service assessment, social support meeting, placement assessment and psycho-education. The patients mood, cognition, behavior, motivation, compliance to treatment and appreciation on family/social support are improved and stabilized. At the time of discharge, the patient had no suicidal ideas, no homicidal ideas, no aggressive thoughts, no endangering behavior and no debilitating adverse effects. The patient agreed on the treatment plan, understood the risk, benefit, alternative treatment, potential consequence of no treatment, and gave informed consent. Disposition: 01 HOME / SELF CARE / HOMELESS Time spent for discharge: 35 Allergies/Adverse Reactions: Allergies Penicillins Allergy (Verified 02/11/22 03:57) Unknown Vital Signs: Last Vital Signs Temp 99.1 F 02/16/22 08:22 Pulse 69 02/16/22 08:22 Resp 14 02/16/22 08:22 BP 99/61 02/16/22 08:22 Pulse Ox 97 02/16/22 08:22 Last Lab: Laboratory Last Values WBC 9.3 K/mm3 (4.5-11.0) 02/11/22 15:10 RBC 4.27 M/mm3 (3.65-5.03) 02/11/22 15:10 Hgb 13.1 gm/dl (10.1-14.3) 02/11/22 15:10 Hct 40.6 % (30.3-42.9) 02/11/22 15:10 MCV 95 fl (79-97) 02/11/22 15:10 MCH 31 pg (28-32) 02/11/22 15:10 MCHC 32 % (30-34) 02/11/22 15:10 RDW 14.0 % (13.2-15.2) 02/11/22 15:10 Plt Count 239 K/mm3 (140-440) 02/11/22 15:10 Lymph % (Auto) 22.0 % (13.4-35.0) 02/11/22 15:10 [place] % (Auto) 9.5 % (0.0-7.3) H 02/11/22 15:10 Eos % (Auto) 0.6 % (0.0-4.3) 02/11/22 15:10 Baso % (Auto) 0.7 % (0.0-1.8) 02/11/22 15:10 Lymph # (Auto) 2.0 K/mm3 (1.2-5.4) 02/11/22 15:10 [place] # (Auto) 0.9 K/mm3 (0.0-0.8) H 02/11/22 15:10 Eos # (Auto) 0.1 K/mm3 (0.0-0.4) 02/11/22 15:10 Baso # (Auto) 0.1 K/mm3 (0.0-0.1) 02/11/22 15:10 Seg Neutrophils % 67.2 % (40.0-70.0) 02/11/22 15:10 Seg Neutrophils # 6.2 K/mm3 (1.8-7.7) 02/11/22 15:10 Sodium 146 mmol/L (137-145) H 02/11/22 15:10 Potassium 3.7 mmol/L (3.6-5.0) 02/11/22 15:10 Chloride 107.9 mmol/L (98-107) H 02/11/22 15:10 Carbon Dioxide 25 mmol/L (22-30) 02/11/22 15:10 Anion Gap 17 mmol/L 02/11/22 15:10 BUN 13 mg/dL (7-17) 02/11/22 15:10 Creatinine 0.8 mg/dL (0.6-1.2) 02/11/22 15:10 Estimated GFR > 60 ml/min 02/11/22 15:10 BUN/Creatinine Ratio 16 % 02/11/22 15:10 Glucose 117 mg/dL (65-100) H 02/11/22 15:10 POC Glucose 105 mg/dL (70-105) 02/13/22 20:05 Hemoglobin A1c 5.8 % (4-6) 02/11/22 15:10 Calcium 9.6 mg/dL (8.4-10.2) 02/11/22 15:10 Total Bilirubin 0.50 mg/dL (0.1-1.2) 02/11/22 15:10 AST 24 units/L (5-40) 02/11/22 15:10 ALT 21 units/L (7-56) 02/11/22 15:10 Alkaline Phosphatase 100 units/L (35-129) 02/11/22 15:10 Total Protein 7.4 g/dL (6.3-8.2) 02/11/22 15:10 Albumin 4.3 g/dL (3.9-5) 02/11/22 15:10 Albumin/Globulin Ratio 1.4 % 02/11/22 15:10 Triglycerides 43 mg/dL (2-149) 02/11/22 15:10 Cholesterol 165 mg/dL (50-199) 02/11/22 15:10 LDL Cholesterol Direct 76 mg/dL (50-130) 02/11/22 15:10 HDL Cholesterol 82 mg/dL (40-59) H 02/11/22 15:10 Cholesterol/HDL Ratio 2.01 % 02/11/22 15:10 TSH 0.608 mlU/mL (0.270-4.200) 02/11/22 15:10 Core Measure Documentation - Palliative Care Palliative Care/ Comfort Measures: Not Applicable - Core Measures Any of the following diagnoses?: none Exam - Constitutional Vitals: Temp Pulse Resp BP Pulse Ox 99.1 F 69 14 99/61 97 02/16/22 08:22 02/16/22 08:22 02/16/22 08:22 02/16/22 08:22 02/16/22 08:22 General appearance: Present: no acute distress - EENT Eyes: Present: PERRL, EOM intact ENT: hearing intact, clear oral mucosa - Neck Neck: Present: supple, normal ROM - Respiratory Respiratory effort: normal Plan Activity: advance as tolerated Weight Bearing Status: Weight Bear as Tolerated Care Plan Goals: Maintain good and stable mental health Plan of Treatment: The patient should be compliant with medications, not to use drugs and not to drink alcohol.The patient understands that if suicidal ideas, homicidal ideas, or any endangering thoughts/behavior arise, they should immediately seek for emergent assistance including but not limited to crisis hot line and emergency room. Follow up with outpatient Psychiatrist and PCP within 7 - 14 days of discharge. Assessment: Schizophrenia Follow up with: PRIMARY CARE,MD [Primary Care Provider] - 7 Days Prescriptions: traZODone [Desyrel] 50 mg PO QHS #30 ARIPiprazole [Abilify TAB] 20 mg PO QDAY #[address] [Depakote Dr] 125 mg PO BID #60 tablet clonazePAM [KlonoPIN] 0.5 mg PO BID PRN #60 tablet PRN Reason: Anxiety hydrOXYzine PAMOATE [Vistaril] 25 mg PO TID #90 capsule Sertraline [Zoloft] 50 mg PO QDAY #30 tablet
== END 2022-02-16 18:55 | disposition home or self-care (01) | DRG 885 ==
LOC: 3A 16:06 → UNDOADMIN 16:06 → 5A 02-11 04:30
PROVIDERS: ADMIT Psychiatry & Neurology Psychiatry; ATTEND Psychiatry & Neurology Psychiatry
DX: F20.9 Schizophrenia, unspecified (principal); K21.9 Gastro-esophageal reflux disease without esophagitis; I10 Essential (primary) hypertension; G47.00 Insomnia, unspecified; Z82.49 Family history of ischemic heart disease and other diseases of the circulatory system; Z88.0 Allergy status to penicillin
CPT/HCPCS: 36415; 80053; 80061; 82962; 83036; 84443; 85025; G0378